=== PATIENT | male | born 1955 | race Caucasian/White ===

== ENCOUNTER 2017-11-20 07:00 | Outpatient (RCR) | payer BC, SELFPAY ==
--- NOTE | 2017-11-06 10:07 | HMH.PTOPEV ---
Rehab Outpatient Evaluation Rehab OP Evaluation Start: 11/06/17 09:48 Freq: Status: Active Protocol: Document 11/06/17 09:49 TFRY (Rec: 11/06/17 10:06 TFRY [id number]) Electronically Signed By Roselia Cast OT 11/06/17 09:49 Outpatient Therapy Subjective History Subjective History THIS IS A 62 YEAR OLD RIGHT HANDED MALE REFERRED TO OCCUPATIONAL THERAPY FOR RIGHT SHOULDER PAIN WITH MOVEMENT. PATIENT REPORTS THAT HE INJURIED HIS SHOULDER IN THE 2ND WEEK IN AUGUST WHEN HE WAS THROWING A BALE OF HAY AND HEARD A RIPPING SOUND. Chief Complaint Pain Symptom Type Ache Sharp Symptoms Relieved By Rest/Positioning Symptoms Aggravated By Physical Activity Prior Functional Limitations None Current Functional Limitations Reaching Lifting Sleeping Symptom Description Activity Dependent Level of pain today (0-10) 0 Pain scale - at its best (0-10) 0 Pain scale - at its worst (0-10) 3 Shoulder/Elbow Eval Shoulder Objective Measurements Palpation Tenderness tenderness shoulder exam standard right Shoulder Palpation Findings Tenderness Shoulder Palpation Overall Comment AC JOINT/POSTERIOR RTC Posture Shoulder Posture Sitting Position (L) Rounded (R) Rounded Shoulder Posture Standing Position (L) Rounded (R) Rounded Scapula Posture Sitting Position (L) Neutral (R) Neutral Shoulder ROM Right Shoulder Abduction Active Range of WFL Motion (degrees) Shoulder Flexion Active Range of Motion WFL (degrees) Query Text: Shoulder External Rotation Active Range WFL WITH PAIN of Motion (degrees) Shoulder Internal Rotation Active Range WFL of Motion (degrees) Shoulder Extension Active Range of WFL Motion (degrees) pain with active ROM shoulder exam right standard full ROM shoulder exam standard right Shoulder MMT Shoulder Abduction Strength Grade 3+ Fair+ Shoulder Extension Strength Grade 4- Good- Shoulder Flexion Strength Grade 3+ Fair+ Shoulder Horizontal Abduction Strength 3+ Fair+ Grade Shoulder Horizontal Adduction Strength 3+ Fair+ Grade Shoulder External Rotation Strength 3+ Fair+ Grade Shoulder Internal Rotation Strength 3+ Fair+ Grade
== END 2017-11-20 07:01 | disposition home or self-care (01) ==
LOC: OT 07:00
PROVIDERS: Family Provider Family Medicine; PCP Family Medicine; Visit Provider Family Medicine
DX: M25.511 Pain in right shoulder (principal)
CPT/HCPCS: 97014; 97033; 97110; 97163; 97165; 97530; G0283

== ENCOUNTER 2021-05-31 01:45 | Emergency (ER) | payer BC, SELFPAY ==
[2021-05-31 01:47] VITALS: BP 173/98; PULSE 87; RESP 16; TEMP 36.8; O2SAT 98; BMI 26.4
[2021-05-31 02:17] LABS: Basophils # 0.1 K/mm3 (0-0.2); Basophils % 0.8 % (0.1-2.0); Eosinophils # 0.4 K/mm3 (0.0-0.4); Eosinophils % 3.8 % (0.1-12.0); Hematocrit 43.3 % (42.0-52.0); Hemoglobin 14.3 g/dL (14.1-18.0); Lymphocytes # 2.2 K/mm3 (0.7-4.5); Lymphocytes % 21.3 % (10-50); Mean Corpuscular HGB Conc 33.1 g/dL (31.8-35.4); Mean Corpuscular Volume 84.5 fl (80-94); Mean Platelet Volume 7.1 fl (7.4-10.4); Monocytes # 0.8 K/mm3 (0.1-1.0); Monocytes % 7.6 % (1.7-9.3); Neutrophils # 6.9 K/mm3 (1.8-7.8); Neutrophils % 66.6 % (37.0-80.0); Platelet Count 302 K/mm3 (142-424); Red Blood Count 5.13 M/mm3 (4.60-6.20); Red Cell Distribution Width 14.1 % (11.5-17.5); White Blood Count 10.3 K/mm3 (4.8-10.8)
[2021-05-31 02:21] LABS: Alanine Aminotransferase 28 U/L (12-78); Albumin Level 4.5 g/dl (3.5-5.0); Albumin/Globulin Ratio 1.3 (1.1-1.8); Alkaline Phosphatase 113 U/L (38-126); Aspartate Amino Transferase 27 U/L (17-59); Bilirubin,Total 0.4 mg/dl (0.2-1.3); Blood Urea Nitrogen 21 mg/dl (9-20); Calcium 9.1 mg/dl (8.4-10.2); Carbon Dioxide 28 mmol/L (22.0-30.0); Chloride 103 mmol/L (98-107); Creatinine Clearance Estimated 92 mL/min (50-200); Estimated Glomerular Filt Rate 75 ml/min (>60); GFR (African American) 91 ML/MIN (>60); Globulin 3.4 g/dL (1.3-3.2); Glucose 115 mg/dl (74-100); Sodium 141 mmol/L (136-145); Total Protein,Serum 7.9 g/dl (6.3-8.2)
[2021-05-31 02:27] LABS: C-Reactive Protein 15.9 mg/L (0-4)
[2021-05-31 02:40] LABS: Procalcitonin 0.053 ng/mL (0.0-2.0)
--- NOTE | 2021-05-31 03:04 | PC.NURSE ---
Called lab to check on time remaining for ESR lab and was notified that it errored and was being run a 2nd time.
[2021-05-31 03:26] LABS: Erythrocyte Sedimentation Rate 17 mm/hr (0-20)
[2021-05-31 04:05] VITALS: BP 138/70; PULSE 80; RESP 15; TEMP 36.8; O2SAT 99
--- NOTE | 2021-05-31 05:50 | HMH.EDSKAF ---
ED Disposition Clinical Impression: Olecranon bursitis of left elbow Disposition: Home, Self-Care Condition on Discharge: Good Instructions: DI for Elbow Bursitis Additional Instructions: use meds and see pcp for follow up Prescriptions: cephALEXin [cephALEXin 500mg capsule*] 500 mg PO TID #30 cap Transmission Status: Pending to [id number] clindamycin HCL [Clindamycin HCl] 300 mg PO TID #30 cap Transmission Status: Pending to [id number] Referrals: Beau Chin MD [Primary Care Provider] - - Critical Care Critical Care Time: No Attestation: On 05/31/21, the high probability of a clinically significant, sudden or life threatening deterioration of the following system(s) required my full and direct attention, intervention and personal management. The time I documented below is in addition to time spent performing reported procedures but includes the following listed in this critical care notation. Medical Decision Making - Medical Records Medical records reviewed: Yes: I reviewed the patient's medical records. - Darshan Inquiry Pt receiving controlled substance: No Vital Signs: 05/31/21 01:47 05/31/21 03:59 05/31/21 04:05 Temperature 98.3 F 98.2 F Temperature Source Oral Oral Pulse Rate 80 Pulse Rate [Right] 87 Respiratory Rate 16 15 Blood Pressure 138/70 Blood Pressure [Right Arm] 173/98 H Blood Pressure Mean [Right Arm] 123 Blood Pressure Source Automatic Cuff Blood Pressure Source [Right Arm] Automatic Cuff Blood Pressure Position Sitting 02 Sat by Pulse Oximetry 98 Oxygen Delivery Method Room Air Room Air Room Air - Lab Data Lab results reviewed: Yes: I reviewed the patient's lab results. Lab Results 05/31/21 02:03: WBC 10.3, RBC 5.13, Hgb 14.3, Hct 43.3, MCV 84.5, MCH 28.0, MCHC 33.1, RDW 14.1, Plt Count 302, MPV 7.1 L, Neut % (Auto) 66.6, Lymph % (Auto) 21.3, Hays % (Auto) 7.6, Eos % (Auto) 3.8, Baso % (Auto) 0.8, Neut # (Auto) 6.9, Lymph # (Auto) 2.2, Hays # (Auto) 0.8, Eos # (Auto) 0.4, Baso # (Auto) 0.1, ESR 17 05/31/21 02:03: Sodium 141, Potassium 4.0, Chloride 103, Carbon Dioxide 28, Anion Gap 14.0, BUN 21 H, Creatinine 1.00, Estimated Creat Clear 92, Estimated GFR 75, Est GFR ( Amer) 91, Glucose 115 H, Calcium 9.1, Total Bilirubin 0.4, AST 27, ALT 28, Alkaline Phosphatase 113, C-Reactive Protein 15.9 H, Total Protein 7.9, Albumin 4.5, Globulin 3.4 H, Albumin/Globulin Ratio 1.3, Procalcitonin 0.053 Result diagrams: 05/31/21 02:03 05/31/21 02:03 Orders (Tests/Meds): ED MEDICATIONS Generic Name Dose Route Start Last Admin Trade Name Freq PRN Reason Stop Dose Admin Ceftriaxone Sodium 1 gm/ 50 mls @ 100 mls/hr 05/31/21 02:15 05/31/21 02:09 Sodium Chloride IV 06/14/21 02:14 100 mls/hr Q24H RAYO Administration Protocol Discontinued Medications Generic Name Dose Route Start Last Admin Trade Name Freq PRN Reason Stop Dose Admin Ketorolac Tromethamine 30 mg 05/31/21 03:55 05/31/21 03:57 Ketorolac 30mg/Ml Vial IV 05/31/21 03:56 30 mg ONCE ONE Administration Medical Decision Narrative: has atraumatic lt olecranon bursitis - has nl rom of jt and ok infl markers and small so decided at this time to not attempt drainage Skin/Abscess/FB HPI - General Chief complaint: Extremity Problem,Nontraumatic Stated complaint: Left elbow swollen and warm to touch Time Seen by Provider: 05/31/21 02:00 Mode of Arrival: Family Vehicle Source of Information: Patient, Medical Record Limitations: No Limitations Description of Symptoms (Recalled from ER Triage Doc. by RN): Pt c/o pain and swelling to L elbow that started yesterday, 05/30/21. He reports he had some swelling to posterior forearm this past week and thought it was tennis elbow. Then, yesterday the swelling was more to the back of the elbow, hot to touch, and becoming painful. Pt started taking aspirin and icing it today. Pt denies any N/V/D, fever, of
== END 2021-05-31 06:11 | disposition home or self-care (01) ==
PROVIDERS: Emergency Provider Emergency Medicine; PCP Family Medicine
DX: M70.22 Olecranon bursitis, left elbow (principal)
CPT/HCPCS: 80053; 84145; 85025; 85651; 86140; 96365; 96375; 99282

== ENCOUNTER 2024-02-20 12:50 | Outpatient (CLI) | payer BC, SELFPAY ==
--- NOTE | 2024-02-20 | US_ITS ---
FINAL REPORT TECHNIQUE: Ultrasound images of the testicles were obtained bilaterally. Color Doppler images were obtained. CLINICAL HISTORY: .rt test pain COMPARISON: None FINDINGS: The testicles are normal in size and echotexture bilaterally. Arterial flow is identified bilaterally. No intratesticular masses are identified. There is a small left hydrocele. IMPRESSION: No evidence of testicular mass or torsion. Reviewed, Interpreted and Dictated by Remigio Pichardo MD Transcribed by Vianney Squires Authenticated and [facility]
--- NOTE | 2024-02-20 | US_ITS ---
FINAL REPORT CLINICAL HISTORY: LT ING PAIN COMPARISON: None FINDINGS: Limited sonographic images were obtained of the left inguinal region. There is a fat containing left inguinal hernia. There is no evidence of fluid collection. IMPRESSION: Fat containing left inguinal hernia. CT could better evaluate. Reviewed, Interpreted and Dictated by Remigio Pichardo MD Transcribed by Vianney Squires Authenticated and [facility]
--- NOTE | 2024-02-20 | US_ITS ---
FINAL REPORT CLINICAL HISTORY: RT SIDE PAIN WHEN COUGHING OR MOVING COMPARISON: None FINDINGS: Limited sonographic images were obtained of the right inguinal region at the area of interest. There is a tiny right inguinal hernia containing fat. No bowel seen entering the hernia. There are small normal-appearing inguinal lymph nodes. IMPRESSION: Tiny right inguinal hernia containing fat. Reviewed, Interpreted and Dictated by Ann Campbell MD Transcribed by Vianney Squires Authenticated and [facility]
== END 2024-02-20 23:59 | disposition home or self-care (01) ==
LOC: RAD 12:50
PROVIDERS: PCP Nurse Practitioner; Visit Provider Nurse Practitioner
DX: R10.30 Lower abdominal pain, unspecified (principal); N50.819 Testicular pain, unspecified
CPT/HCPCS: 76870; 76882

== ENCOUNTER 2024-03-04 13:26 | Outpatient (CLI) | payer BC, SELFPAY ==
[2024-03-04 13:37] LABS: Microscopic, Urine URINE MICROSCOPIC (MICROSCOPIC)
[2024-03-04 13:57] LABS: Basophils # 0.1 K/mm3 (0-0.2); Eosinophils # 0.4 K/mm3 (0.0-0.4); Eosinophils % 4.1 % (0.1-12.0); Hematocrit 41.5 % (42.0-52.0); Hemoglobin 13.1 g/dL (14.1-18.0); Lymphocytes # 2.7 K/mm3 (0.7-4.5); Lymphocytes % 29.6 % (10-50); Mean Corpuscular HGB Conc 31.5 g/dL (31.8-35.4); Mean Corpuscular Hemoglobin 28.6 pg (27.0-31.2); Mean Corpuscular Volume 90.8 fl (80-94); Mean Platelet Volume 7.4 fl (7.4-10.4); Monocytes # 0.9 K/mm3 (0.1-1.0); Monocytes % 9.9 % (1.7-9.3); Neutrophils % 55.4 % (37.0-80.0); Platelet Count 316 K/mm3 (142-424); Red Blood Count 4.57 M/mm3 (4.60-6.20); Red Cell Distribution Width 15.1 % (11.5-17.5); White Blood Count 9.1 K/mm3 (4.8-10.8)
[2024-03-04 14:19] LABS: Appearance,Urine CLEAR (Clear); Bilirubin,Urine Negative (Negative); Blood, Urine Negative (Negative); Color,Urine YELLOW (Yellow); Glucose,Urine (UA) Negative (Negative); Ketones,Urine Negative (Negative); Leukocyte Esterase,Urine TRACE (Negative); Nitrate,Urine Negative (Negative); Protein,Urine Negative (Negative); Urobilinogen,Urine 0.2 EU/dl (0.2)
[2024-03-04 14:51] LABS: Anion Gap 10.2 mEq/L (5-15); Blood Urea Nitrogen 22 mg/dl (9-20); Calcium 9.4 mg/dl (8.4-10.2); Carbon Dioxide 29 mmol/L (22.0-30.0); Chloride 103 mmol/L (98-107); Estimated Glomerular Filt Rate 84 ml/min (>60); GFR (African American) 102 ML/MIN (>60); Glucose 96 mg/dl (74-100); Potassium 4.2 mmoL/L (3.5-5.1); Sodium 138 mmol/L (136-145)
[2024-03-04 15:13] LABS: Bacteria,Urine Trace /lpf; Squamous Epithelial Cell,Urine Occasional #/hpf (0-5); WBC,Urine Occasional #/hpf (0-3)
== END 2024-03-04 23:59 | disposition home or self-care (01) ==
PROVIDERS: PCP Nurse Practitioner; Visit Provider Surgery
DX: K40.90 Unilateral inguinal hernia, without obstruction or gangrene, not specified as recurrent (principal); Z79.899 Other long term (current) drug therapy
CPT/HCPCS: 36415; 80048; 81001; 85025

== ENCOUNTER 2024-03-15 08:28 | Day surgery (SDC) | payer BC, SELFPAY ==
[2024-03-15] VITALS (8 sets, daily range): BP systolic 111–170; BP diastolic 57–86; PULSE 69–91; RESP 14–27; TEMP 36.3–36.9; O2SAT 91–95; BMI 26.4
--- NOTE | 2024-03-15 09:07 | EXP.ANES.CKL ---
[facility] Disclaimer: The information contained in this section may have been updated after the patient was seen, as this information can be updated by other users. Medical History Hypertension Surgical History History of colonoscopy History of hand surgery History of hernia surgery Social History (Updated 03/15/24 @ 08:48 by Storm Braga) Smoking Status: Never smoker alcohol intake: current substance use type: denies use current occupational status: employed Travel in the last 8 weeks: None [facility] Anesthesia Checklist Patient Identification Patient Identification: Arm Band and Verbal (Name & ) Structural Data Admitted From: Home Planned Operative Procedure/s: ABILIO IHR Consent for Planned Operative Procedure(s) Verified: Yes Verified Documents: Surgical Consent and History and Physical NPO Status Verified Time NPO: 20:30 Chart Verification Results Verified: CBC, BMP, ECG and Chest Xray Additional verifications Patient : No Anesthesia Reactions: No Hx Blood Transfusions: No Blood Transfusion Reaction: No Cardiovascular Assessment Heart Sounds: S1 & S2 Pulse Rhythm: Irregular Peripheral Edema: No Airway Assessment Mallampati Score:: Class II C-Spine Mobility Assessed: Yes (FROM) TMJ Mobility Assessed: Yes Dentition: Good Dentition (Top front teeth capped. Nothing loose per pt.) Neurological Assessment Level of Consciousness: Awake, Alert, Appropriate and Follows Commands Hx Seizures: No Numbness or tingling in extremities: No Anesthesia Plan Anesthesia Risk discussed: Yes Anesthesia Plan: Verified ASA Class: III Anesthesia Type: General
--- NOTE | 2024-03-15 09:14 | ECG_ITS ---
APPROVED REPORT Exam: Resting ECG HR:61 bpm ECG Measurements Heart Rate 61 AXES OK 167 P 65 QRSd 93 QRS 68 QT 406 T 60 QTc 410 Conclusion SINUS RHYTHM NORMAL ECG UNCONFIRMED REPORT Electronically signed by : Beau Bright MD 03/15/2024 13:53:32
[2024-03-15] MEDS: CEFAZOLIN SODIUM 1 GM in 0.9 % SODIUM CHLORIDE 50 ML IV (09:57)
[2024-03-15] MEDS: LIDOCAINE 1% 20ML MDV 20 ML (10:41)
[2024-03-15] MEDS: ROPIVACAINE 0.5% 30ML VIAL 150 MG (10:41)
--- NOTE | 2024-03-15 12:53 | EXP.OP.NOTE ---
Date of procedure: 03/15/24 Pre-op Diagnosis:: Right inguinal hernia, recurrent left inguinal hernia Post-op Diagnosis:: Same Procedure performed:: Bilateral laparoscopic inguinal hernia repair (TEPP) for recurrent left inguinal hernia and nonrecurrent right inguinal hernia with placement of large sized Bard 3D max mesh bilaterally Surgeon:: Bobo Lee MD SITE PROJECT MANAGER:: Miguel Toscano Anesthesia: GETA Estimated blood loss (mL): 20 Operative findings:: He had a rather large nonrecurrent indirect right inguinal hernia. There was a large recurrent direct left inguinal hernia. Anatomy was significantly altered and it appeared as though the cord was markedly displaced superiorly and laterally. Operative note:: Consent was obtained and patient was taken to the operating room. He was given preoperative intravenous antibiotics. Was positioned in supine position. General anesthesia was induced via endotracheal tube. Abdomen and perineum was prepped and draped in the standard surgical fashion. Subumbilical skin incision was made and dissection was carried down to the anterior rectus fascia. This was incised to the right of the linea alba. Rectus muscles were retracted laterally and preperitoneal space was entered. The space saver pro dissecting and structural balloon system was inserted into the preperitoneal space. Preperitoneal space was dissected out under laparoscopic visualization. CO2 pneumo preperitoneum was achieved. A couple 5 mm trocars were inserted in the midline inferior to the umbilicus. Attention was turned to dissection on the right. Jayden's ligament was identified as well as the pubic tubercle. Dissection was carried out identifying hernia sac as an indirect hernia. This was dissected free from the cord. Remaining structures including the inferior epigastric vessels, cord structures, and iliac vessels were identified. There was a significant amount of herniated preperitoneal fat along the cord as an indirect hernia as well as the hernia sac. This was all dissected free. Dissection was carried out laterally to allow for placement of the mesh. Next attention was turned to dissection on the left. Jayden's ligament and pubic tubercle were identified. There was significant recurrent direct hernia defect with essentially loss of the inguinal floor. Inferior epigastric vessels and iliac vessels were identified. However interestingly it was rather difficult to identify the cord structures. Prolonged dissection was carried out and appeared as though they were displaced markedly laterally and superiorly. These were unable to be dissected free from the adherent attachments. However the defect was clearly dissected free with plenty of room for placement of mesh. A large size Bard 3D max mesh dedicated for the left side was inserted into the preperitoneal space. It was oriented intracorporeally to cover the defect. Due to the altered anatomy from the cord structures cord structures were likely lateral to the mesh. Attention was then turned to the right side. A large size Bard 3D max mesh dedicated for the right side was inserted into the preperitoneal space. It was oriented intracorporeally to cover the defects. Repair appeared adequate. There was good hemostasis. Mesh was observed in position as CO2 pneumoperitoneum was evacuated. Trocars were removed. Posterior fascia and peritoneum at the umbilical trocar site was opened to evacuate intra-abdominal gas. Anterior rectus fascia was then closed with several interrupted 0 Vicryl sutures. Local anesthetic was infiltrated into all of the trocar sites as well as for inguinal nerve blocks. Skin incisions were closed with 4 Monocryl subcuticular fashion. Dermabond and dressings were applied. Condition: stable Disposition: PACU Complications:: None immediately apparent
--- NOTE | 2024-03-15 13:00 | EXP.ANES.I ---
[facility] Anesthesia Record Part I Anesthesia Record I Intake, IV Amount: 1,200 Hydration: Adequate Estimated blood loss (mL): 0 Urine output (mL): 200 Blood Pressure: 122/76 SaO2: 94 Pulse Rate: 90 Airway Patency: Patent Respiratory Rate: 14 Temperature: 97.5 F Patient is:: Awake and Stable Stable to PACU at:: 12:55
[2024-03-15 13:04] LABS: Microscopic,Cath URINE MICROSCOPIC (MICROSCOPIC)
[2024-03-15 13:46] LABS: Appearance,Urine/Cath CLEAR (Clear); Bilirubin,Cath Negative (Negative); Blood, Urine/Cath Negative (Negative); Color,Urine/Cath YELLOW (Yellow); Glucose,Urine/Cath (UA) Negative (Negative); Ketones,Urine/Cath Negative (Negative); Leukocyte Esterase,Cath Negative (Negative); Nitrate,Cath Negative (Negative); PH,Urine/Cath 5.5 (5.0-8.5); Protein,Urine/Cath TRACE (Negative); Specific Gravity, Urine/Cath >= 1.030 (1.005-1.030); Urobilinogen,Cath 0.2 EU/dl (0.2)
[2024-03-15 14:21] LABS: Bacteria,Urine/Cath TRACE /lpf; Squamous Epithelial Ur./Cath Occasional #/hpf (0-5); WBC,Urine/Cath Occasional #/hpf (0-3)
[2024-03-15 14:22] LABS: Mucus,Urine/Cath Trace /lpf
--- NOTE | 2024-03-16 07:20 | EXP.ANES.II ---
[facility] Anesthesia Record Part II Anesthesia Record Part II Discharge Time: 13:15 Destination: Surgical Day Care (OP Surgery) PACU nurse assessment reviewed?: Yes Patient Condition:: Good Anesthesia Complications:: None Swallowing reflex intact?: Yes Airway Patency: Patent Cyanosis?: No Blood Pressure: 125/67 SaO2: 92 Respiratory Rate: 15 Pulse Rate: 89 Temperature: 97.8 F Mental Status: Alert & Oriented Pain level:: 0 Nausea and/or vomitting:: None Intake, IV Amount: 0 Hydration: Adequate
[2024-03-16 07:21] VITALS: BP 125/67; PULSE 89; RESP 15; TEMP 36.6; O2SAT 92
== END 2024-03-15 13:50 | disposition home or self-care (01) ==
PROVIDERS: PCP Nurse Practitioner; Visit Provider Surgery
PROC: 0YQ64ZZ Repair Left Inguinal Region, Percutaneous Endoscopic Approach (ICD-10-PCS; CPT 49650; principal; 2024-03-15 10:00)
DX: K40.91 Unilateral inguinal hernia, without obstruction or gangrene, recurrent (principal); K40.30 Unilateral inguinal hernia, with obstruction, without gangrene, not specified as recurrent
CPT/HCPCS: 49650; 49651; 81001; 93005; 96374; J3490; C1781; J0131; J2405

== ENCOUNTER 2024-06-10 08:52 | Emergency (ER) | payer BC, SELFPAY ==
--- NOTE | 2024-06-10 09:28 | XR_ITS ---
FINAL REPORT CLINICAL HISTORY: pain FINDINGS: 3 views of the left knee were obtained. There is no evidence of fracture or dislocation. There are mild degenerative changes. No focal soft tissue abnormality is seen. IMPRESSION: No acute bony abnormality. Authenticated and [facility]
--- NOTE | 2024-06-10 09:28 | XR_ITS ---
FINAL REPORT CLINICAL HISTORY: pain FINDINGS: 3 views of the left ankle were obtained. There is no evidence of fracture. Mild degenerative changes are noted. There is soft tissue swelling, greatest medially. IMPRESSION: No acute bony abnormality. Soft tissue swelling, greatest medially. Authenticated and [facility]
--- NOTE | 2024-06-10 09:28 | XR_ITS ---
FINAL REPORT CLINICAL HISTORY: pain FINDINGS: 2 views of the left lower leg were obtained. There is no evidence of fracture. An 8 mm lytic focus is seen in the medial proximal tibial metaphysis with a thin sclerotic rim. This is of uncertain etiology but favored to be benign. No acute bony abnormality is seen. A 4 mm foreign body is seen in the lateral mid lower leg soft tissues. IMPRESSION: No acute bony abnormality. 4 mm foreign body in the lateral mid lower leg soft tissues. Authenticated and [facility]
--- NOTE | 2024-06-10 09:38 | ED_ITS ---
Discharge Plan Disposition Patient Disposition: Home, Self-Care Condition: Good Prescriptions Prescriptions: No Action lisinopril 5 mg tablet 5 mg PO DAILY Referrals Follow up/Referrals: Bradley High DO [Staff Physician] - See instructions Beau Chin MD [Primary Care Provider] - See instructions Activity Restrictions/Add. Instructions Additional Instructions/Restrictions: Rest the extremity, Elevate the extremity as tolerated while you are resting. Take ibuprofen for pain. I sent in a prescription to your pharmacy. Follow up with Dr. High (orthopedics). I put in a referral but you need to call his office and schedule an appointment. Follow up with your regular doctor. GO TO THE ER FOR ANY WORSENING SYMPTOMS Clinical Impressions Clinical Impression: Left leg pain, Strain of calf muscle, Leg edema, left Print Language Print Language: [place] Discharge ED Provider: Ronaldo [place] [facility] General Stated complaint: inj left knee 2 wks ago Time Seen by Provider: 06/10/24 09:38 History of Present Illness Provider Complaint: He states that 2 weeks ago he twisted his left knee and strained his left calf as he was getting out of his tractor. He has had knee pain and calf pain since then. But, over the past 3 days his calf pain and swelling has worsened. Related Data Home Medications ?Medication ?Instructions ?Recorded ?Confirmed lisinopril 5 mg tablet 5 mg PO DAILY 02/26/24 04/01/24 Allergies Allergy/AdvReac Type Severity Reaction Status Date / Time erythromycin base Allergy Intermediate Hives Verified 04/01/24 10:41 [facility] Disclaimer: The information contained in this section may have been updated after the patient was seen, as this information can be updated by other users. Medical History Hypertension Surgical History History of colonoscopy History of hand surgery History of hernia surgery Social History Smoking Status: Never smoker alcohol intake: current substance use type: denies use current occupational status: employed Travel in the last 8 weeks: None ROS Obtained: Yes All systems reviewed & no additional complaints except as documented Constitutional Constitutional: Denies chills and Denies fever(s) Eyes Eyes: Denies eye discharge ENT Ears, Nose, Mouth, and Throat: Denies dizziness, Denies otalgia and Denies sore throat Cardiovascular Cardiovascular: Denies chest pain Respiratory Respiratory: Denies shortness of breath, Denies chest congestion, Denies cough, Denies stridor and Denies wheezing Gastrointestinal Gastrointestingal: Denies nausea or vomiting Musculoskeletal Musculoskeletal: Reports as per HPI Integumentary/Breasts Skin/Breast: Reports redness, Denies rash and Denies wounds Neurologic Neurologic: Denies dizziness and Denies paresthesias Allergic/Immunologic Allergic/Immunologic: Denies wheezing Physical Exam General General appearance: alert and in no apparent distress Head Head exam: atraumatic, normocephalic and normal inspection Eye Eye exam: Present normal appearance, PERRL and EOMI ENT ENT exam: Present normal exam, normal oropharynx, mucous membranes moist, TM's normal bilaterally and normal external ear exam Neck Neck exam: Present normal inspection, full ROM and trachea midline; Absent meningismus or lymphadenopathy Chest Chest inspection: Present normal inspection and symmetric chest wall rise; Absent tenderness Respiratory Respiratory exam: Present normal lung sounds bilaterally; Absent respiratory distress Cardiovascular Cardiovascular exam: Present regular rate and normal rhythm; Absent JVD Abdominal Exam Abdominal exam: Present soft and normal bowel sounds; Absent distention, tenderness or guarding Extremities Exam Extremities exam: Present normal capillary refill; Absent calf tenderness Expanded Lower Extremity Exam Left: Hip/Pelvis exam: Present normal inspection and full ROM; Absent tenderness Upper leg exam: Present normal inspection and full ROM; Absent tenderness Knee exam: Present full ROM, tenderness, swelling and knee extension intact; Absent abrasion, laceration, ecchymosis, deformity, crepitus, dislocation, erythema, effusion, anterior drawer sign, posterior draw sign, pain with valgus, laxity with valgus, pain with varus or laxity with varus Lower leg exam: Present full ROM, tenderness, swelling, Homans' sign and Achilles tendon intact; Absent abrasion, laceration, ecchymosis, deformity, crepitus, dislocation, erythema or palpable cord Ankle exam: Present normal inspection and full ROM; Absent tenderness, swelling, abrasion, laceration, ecchymosis, deformity, crepitus, dislocation, erythema, tenderness over talofibular lig or anterior draw sign Foot/toe exam: Present normal inspection and full ROM; Absent tenderness, swelling, abrasion, laceration, ecchymosis, deformity, crepitus, dislocation, erythema, amputation, puncture wound, foreign body, calcaneal tenderness, tenderness at base of 5th metatarsal, nail avulsion or subungual hematoma Neurovascular/Tendon exam: Present normal capillary refill, normal 2-point discrimination and normal fine/light touch; Absent pulse deficit, motor deficit, sensory deficit, tendon deficit, extremity cold to touch or pallor Gait: observed and limited by pain Back Exam Back exam: Present normal inspection; Absent tenderness Neurological Exam Neurological exam: Present alert and oriented X3 Psychiatric Psychiatric exam: Present normal affect and normal mood Skin Skin exam: Present warm, dry, intact and normal color Lymphatic Lymphatic Findings: no adenopathy Medical Decision Making Medical Records Medical records reviewed: No I reviewed the patient's medical records. Darshan Inquiry Pt receiving controlled substance: No Orders (Tests/Meds): ORDERS Category Date Time Status Ankle XR - Left minimum 3 Views [XR ankle LT min 3V] Exams 06/10/24 09:28 Ordered Stat XR knee LT 3V Stat Exams 06/10/24 09:28 Ordered XR tibia fibula LT 2V Stat Exams 06/10/24 09:28 Ordered Radiology Data #1: Image(s): Knee Image Reviewed: Yes I reviewed the patient's radiology image and Yes I have reviewed radiologist's interpretation Preliminary Findings: Abnormal and No Fracture Seen Accession No. : [id number] Patient Name / ID : HILARIA MAZARIEGOS / [id number] Exam Date : 06/10/2024 09:25:57 ( Final ) Study Comment : Sex / Age : M / 68Y Creator : LOPEZ LOPEZ MD Dictator : Apprentice Pattern Maker : Joy Operator : LOPEZ LOPEZ MD Approver2 : Report Date : 06/10/2024 10:22:43 My Comment : FINAL REPORT CLINICAL HISTORY: pain FINDINGS: 3 views of the left knee were obtained. There is no evidence of fracture or dislocation. There are mild degenerative changes. No focal soft tissue abnormality is seen. IMPRESSION: No acute bony abnormality. Authenticated and [facility] #2: Image(s): Tib/Fib Image Reviewed: Yes I reviewed the patient's radiology image and Yes I have reviewed radiologist's interpretation Preliminary Findings: Abnormal and No Fracture Seen Accession No. : [id number] Patient Name / ID : HILARIA MAZARIEGOS / [id number] Exam Date : 06/10/2024 09:28:56 ( Final ) Study Comment : Sex / Age : M / 68Y Creator : LOPEZ LOPEZ MD Dictator : Apprentice Pattern Maker : Joy Operator : LOPEZ LOPEZ MD Approver2 : Report Date : 06/10/2024 10:24:29 My Comment : FINAL REPORT CLINICAL HISTORY: pain FINDINGS: 2 views of the left lower leg were obtained. There is no evidence of fracture. An 8 mm lytic focus is seen in the medial proximal tibial metaphysis with a thin sclerotic rim. This is of uncertain etiology but favored to be benign. No acute bony abnormality is seen. A 4 mm foreign body is seen in the lateral mid lower leg soft tissues. IMPRESSION: No acute bony abnormality. 4 mm foreign body in the lateral mid lower leg soft tissues. Authenticated and [facility] #3: Image Reviewed: Yes I reviewed the patient's radiology image and Yes I have reviewed radiologist's interpretation Preliminary Findings: No Fracture Seen Accession No. : [id number] Patient Name / ID : HILARIA MAZARIEGOS / [id number] Exam Date : 06/10/2024 09:27:38 ( Final ) Study Comment : Sex / Age : M / 68Y Creator : LOPEZ LOPEZ MD Dictator : Apprentice Pattern Maker : Joy Operator : LOPEZ LOPEZ MD Approver2 : Report Date : 06/10/2024 10:26:07 My Comment : FINAL REPORT CLINICAL HISTORY: pain FINDINGS: 3 views of the left ankle were obtained. There is no evidence of fracture. Mild degenerative changes are noted. There is soft tissue swelling, greatest medially. IMPRESSION: No acute bony abnormality. Soft tissue swelling, greatest medially. Authenticated and [place] CT Data ED CT Reviewed: Yes I have reviewed the patient's CT results US Data US Images: Lower Extremity ED US Reviewed: Yes I have reviewed the patient's US results Preliminary Findings: Normal/NAD Procedures Risk/Benefits of Procedure(s) Were Explained: Yes Orthopedic Splinting/Casting Injury #1: Side: left Lower Extremity Injury Location: knee and lower leg Lower Extremity Immobilizer: knee immobilizer and applied by nurse/dr barajas Other Orthopedic Equipment: crutches Post Cast/Splinting Neuro Status: intact and no change Post Cast/Splinting Vasc Status: intact and no change
--- NOTE | 2024-06-10 09:51 | CA_ITS ---
FINAL REPORT TECHNIQUE: Color Doppler, duplex Doppler and compression sonography of the left lower extremity deep venous systems was performed. CLINICAL HISTORY: left leg swelling, left leg pain. Injured Left knee 2 weeks ago, 1 week ago pt felt a pop pt now has edema. Mid calf difficult to image due to edema FINDINGS: There is no evidence of deep venous thrombosis from the level of the groin to the calf. The veins are patent and compressible. There is a 5 cm heterogeneous mass in the popliteal fossa of uncertain etiology, may represent mass versus complex popliteal cyst. IMPRESSION: No evidence of deep venous thrombosis left lower extremity. Mass versus complex popliteal cyst. Reviewed, Interpreted and Dictated by Bobo Lopez III, MD Transcribed by Suzi Witt Authenticated and . [facility]
[2024-06-10 09:55] VITALS: BP 166/82; PULSE 87; RESP 20; TEMP 36.8; O2SAT 97; BMI 25.2
--- NOTE | 2024-06-10 10:23 | PC.NURSE ---
pt off unit getting a doppler study done
[2024-06-10 11:00] VITALS: BP 166/82; PULSE 87; RESP 20; TEMP 36.8
== END 2024-06-10 11:07 | disposition home or self-care (01) ==
PROVIDERS: Emergency Provider Nurse Practitioner Family; PCP Family Medicine
DX: M79.605 Pain in left leg (principal); R22.42 Localized swelling, mass and lump, left lower limb; S86.812A Strain of other muscle(s) and tendon(s) at lower leg level, left leg, initial encounter; V84.4XXA Person injured while boarding or alighting from special agricultural vehicle, initial encounter
CPT/HCPCS: 73562; 73590; 73610; 93971; 99204; 99212; G0463